=== PATIENT | male | born 1960 | race Two or more races ===

== ENCOUNTER 2018-06-04 09:21 | Outpatient (CLI) | payer OTHER ==
[~2018-06-04] VITALS: Ht 177.8 cm; Wt 86.2 kg
== END 2018-06-04 09:40 | disposition home or self-care (01) ==
LOC: OFIC 805 09:21
DX: T17.298A Other foreign object in pharynx causing other injury, initial encounter (principal); R13.19 Other dysphagia; K21.0 Gastro-esophageal reflux disease with esophagitis

== ENCOUNTER 2018-06-15 08:48 | Outpatient (CLI) | payer OTHER | END 2018-06-15 08:59 | disposition home or self-care (01) | LOC: TOM 08:48 | DX: R22.1 Localized swelling, mass and lump, neck (principal) ==

== ENCOUNTER 2018-06-25 12:29 | Outpatient (CLI) | payer OTHER ==
[~2018-06-25] VITALS: Ht 152.4 cm; Wt 86.2 kg
== END 2018-06-25 12:45 | disposition home or self-care (01) ==
LOC: OFIC 805 12:29
DX: K21.0 Gastro-esophageal reflux disease with esophagitis (principal); R13.10 Dysphagia, unspecified; S10.15XA Superficial foreign body of throat, initial encounter